=== PATIENT | male | born 1965 | race Caucasian/White ===

== ENCOUNTER → 2017-12-22 | Outpatient (CLI) | payer BC ==
[~2017-12-22] VITALS: Ht 175.3 cm; Wt 86.2 kg
[~2017-12-22] MED LIST: ASPIR 8181 M1 PO; CYMBALTA60 MG PO; IRBESARTAN-HCT1 EACH PO; KENALOG,ARISTOC80 GM TP; NOHOMEMEDS; TYLENOL ARTHRI650 MG PO
== END | disposition home or self-care (01) ==
LOC: AMB 08:00
PROC: 0DBL8ZX Excision of Transverse Colon, Via Natural or Artificial Opening Endoscopic, Diagnostic (ICD-10-PCS; principal; 2017-12-22)
DX: Z12.11 Encounter for screening for malignant neoplasm of colon (principal); R19.5 Other fecal abnormalities; K63.5 Polyp of colon; K57.30 Diverticulosis of large intestine without perforation or abscess without bleeding; I10 Essential (primary) hypertension; J30.9 Allergic rhinitis, unspecified; F17.200 Nicotine dependence, unspecified, uncomplicated; Z79.82 Long term (current) use of aspirin; Z80.1 Family history of malignant neoplasm of trachea, bronchus and lung; Z82.49 Family history of ischemic heart disease and other diseases of the circulatory system
CPT/HCPCS: 80048; 88304; 88305; 93005; J2250